=== PATIENT | female | born 1940 | race Caucasian/White ===

== ENCOUNTER 2017-05-03 12:44 | Emergency (ER) | payer MEDICARE, BC ==
--- NOTE | 2017-05-03 13:19 | Emergency Department Record ---
History of Present Illness - General Chief Complaint: Shortness of breath Stated Complaint: UPPER RESPITORY/KALYAN Time Seen by Provider: 05/03/17 13:07 Source: Patient Mode of Arrival: Ambulatory Limitations: No limitations - History of Present Illness Initial Comments: The patient is here with a 3 day hx of a cough with intermittent sputum production. She has had some chronic SOB but no different than normal. She denies any CP, fever, chills, or back pain. The patient believes she needs an Abx. MD Complaint: Cough Onset/Timin -: Days(s) Known History Of: COPD Treatments Prior to Arrival: Oxygen - Related Data Home Oxygen Therapy: Yes Home Oxygen Amount: 3 Liters Home Medications Medication Instructions Recorded Confirmed Last Taken Omeprazole [Prilosec] 20 mg PO DAILY 05/03/17 05/03/17 05/03/17 Previous Rx's Medication Instructions Recorded Doxycycline Monohydrate [Mondoxyne 100 mg PO BID #20 capsule 05/03/17 Nl] Allergies Allergy/AdvReac Type Severity Reaction Status Date / Time antibiotic Allergy VOMITING Uncoded 02/07/15 21:01 Travel Screening - Travel/Exposure Within Last 30 Days Have you traveled within the last 30 days?: No - Travel/Exposure Within Last Year Have you traveled outside the [place] in the last year?: No - Additonal Travel Details Have you been exposed to anyone with a communicable illness?: No Review of Systems Constitutional: Denies: Chills, Fever Eyes: Denies: Eye discharge ENT: Reports: Congestion Respiratory: Reports: Cough. Denies: Dyspnea Past Medical History - SOCIAL HISTORY Smoking Status: Former smoker Alcohol Use: None Drug Use: None - RESPIRATORY Hx Respiratory Disorders: Yes Hx COPD: Yes Comment:: HOme O2-3L - CARDIOVASCULAR Hx Cardio Disorders: Yes Hx Irregular Heartbeat: Yes - NEURO Hx Neuro Disorders: No - GI Hx GI Disorders: No - Hx Genitourinary Disorders: No - ENDOCRINE Hx Endocrine Disorders: No - MUSCULOSKELETAL Hx Musculoskeletal Disorders: Yes Hx Arthritis: Yes - PSYCH Hx Psych Problems: Yes Hx Anxiety: Yes Hx Depression: Yes - HEMATOLOGY/ONCOLOGY Hx Hematology/Oncology Disorders: Yes Hx Cancer: Yes (Breast rocio.) Hx Chemotherapy: Yes Hx Radiation Therapy: No Family Medical History Any Significant Family History?: No Family Hx Comment (NOT TO BE USED IN PLACE OF ITEMS BELOW): Mom w/ Aortic aneurysm Hx Cancer: Brother/Sister Hx Heart Disease: Mother Hx Resp Disorders: Father Hx Stroke: Mother Physical Exam - General General Appearance: Alert, Oriented x3, Cooperative, No acute distress - Head Head exam: Atraumatic, Normocephalic, Normal inspection - Eye Eye exam: Normal appearance, PERRL - ENT Throat exam: Normal inspection. negative: Tonsillar erythema, Tonsillar exudate - Neck Neck exam: Normal inspection, Full ROM. negative: Tenderness - Respiratory Respiratory exam: Decreased breath sounds, Rhonchi (mild in the bases.). negative: Normal lung sounds bilaterally, Stridor, Wheezes - Cardiovascular Cardiovascular Exam: Regular rate, Normal rhythm, Normal heart sounds - GI/Abdominal GI/Abdominal exam: Soft, Normal bowel sounds. negative: Tenderness - Extremities Extremities exam: Normal inspection, Full ROM, Normal capillary refill. negative: Tenderness Course Vital Signs 05/03/17 12:50 Temperature 97.9 F Pulse Rate 94 H Respiratory 24 Rate Blood Pressure 115/55 Pulse Ox 95 - Reevaluation(s) Reevaluation #1: The patient is doing very well at this time. She denies any SOB, KALYAN, or chest pain. Her coughing seems to be improved and she feels ready for home. 05/03/17 14:33 Medical Decision Making - Data Complexity MDM Data: X-Ray Ordered and/or Reviewed - Radiology Data Radiology results: Report reviewed (CXR: COPD, No acute changes compared to old per Rad.) Disposition Disposition: Discharge Clinical Impression: Bronchitis Disposition: Home, Self-Care Condition: (1) Good Instructions: Acute Bronchitis (ED) Additional Instructions: Please take the Doxycycline as directed and continue your regular medicines. Please see your PCP early next week if not better. Return to the ER for any trouble breathing, shortness of breath, increasing cough or fever. Prescriptions: Doxycycline Monohydrate [Mondoxyne Nl] 100 mg PO BID #20 capsule Forms: Patient Portal Access Time of Disposition: 14:36 Quality - Quality Measures Quality Measures: N/A - Blood Pressure Screening View Details: Yes Does Patient Have Any of the Following: No Blood Pressure Classification: Pre-Hypertensive BP Reading Systolic Measurement: 126 Diastolic Measurement: 75 Screening for High Blood Pressure: < Pre-Hypertensive BP, F/U Documented > [ G8950] Pre-Hypertensive Follow-up Interventions: Referral to alternative/primary care provider.
[2017-05-03] MEDS ORDERED: DOXYCYCLINE HYCLATE 100 MG CAPSULE PO ONE (14:09)
--- NOTE | 2017-05-04 13:22 | RADIOLOGY REPORT ---
EXAM: CHEST 2 VIEWS HISTORY: DIFFICULTY IN BREATHING. TECHNIQUE: Frontal and lateral views of the chest were performed. COMPARISON: 04/19/16. FINDINGS: The heart size is normal. There is severe emphysematous change. There is a large bulla in the left lung base. No acute-type infiltrate or pleural effusion. IMPRESSION: SEVERE UNDERLYING EMPHYSEMA. THERE IS A LARGE BULLA/BLEB IN THE LEFT LOWER LOBE. NO ACUTE PROCESS. JOB NUMBER: [id number] MTDD
== END 2017-05-03 14:50 | disposition home or self-care (01) ==
LOC: ER 12:44
DX: J20.9 Acute bronchitis, unspecified (principal); R06.02 Shortness of breath; J44.9 Chronic obstructive pulmonary disease, unspecified; Z99.81 Dependence on supplemental oxygen; Z87.891 Personal history of nicotine dependence
CPT/HCPCS: 71020; 99283

== ENCOUNTER 2019-05-27 08:17 | Emergency (ER) | payer MEDICARE, MEDICAID ==
--- NOTE | 2019-05-27 08:45 | Emergency Department Record ---
History of Present Illness - General Chief Complaint: Cough Stated Complaint: COUGH Time Seen by Provider: 05/27/19 08:36 Source: Patient, RN notes reviewed Mode of Arrival: Ambulatory - History of Present Illness Initial Comments: patient has a cough which started 6 days ago and seen by her palative care nurse and started on amoxil and prednisone and not getting better. Primary is shar Chambers and her cough is dry and using nebulizer every 8 hours and inhalers .Patient on home oxygen 3 liters per minute and her pallative nurse wants to talk to her primary about hospise care. MD Complaint: Cough Onset/Timin -: Week(s) - Related Data Home Medications Medication Instructions Recorded Confirmed Last Taken Amoxicillin/Potassium Clav 1 tab PO BID 05/27/19 05/27/19 Unknown [Augmentin 875-125 Tablet] Guaifenesin [Mucinex] 600 mg PO BID 05/27/19 05/27/19 Unknown Methylprednisolone [Medrol] 4 mg PO ASDIR 05/27/19 05/27/19 Unknown Roflumilast [Daliresp] 250 mcg PO DAILY 05/27/19 05/27/19 Unknown Previous Rx's Medication Instructions Recorded Levofloxacin [Levaquin] 500 mg PO DAILY #7 tablet 05/27/19 Allergies Allergy/AdvReac Type Severity Reaction Status Date / Time tetracycline AdvReac VOMITING Verified 05/27/19 08:32 Travel Screening - Travel/Exposure Within Last 30 Days Have you traveled within the last 30 days?: No Review of Systems Reviewed: No additional complaints except as noted below Constitutional: Reports: As per HPI. Denies: Chills, Fever, Malaise, Night sweats, Weakness, Weight change Eyes: Reports: As per HPI. Denies: Eye discharge, Eye pain, Photophobia, Vision change ENT: Reports: As per HPI. Denies: Congestion, Dental pain, Ear pain, Epistaxis, Hearing loss, Throat pain Respiratory: Reports: As per HPI. Denies: Cough, Dyspnea, Hemoptysis, Stridor, Wheezes Cardiovascular: Reports: As per HPI. Denies: Arrhythmia, Chest pain, Dyspnea on exertion, Edema, Murmurs, Orthopnea, Palpitations, Paroxysmal nocturnal dyspnea, Rheumatic Fever, Syncope Endocrine: Reports: As per HPI. Denies: Fatigue, Heat or cold intolerance, Polydipsia, Polyuria Gastrointestinal: Reports: As per HPI. Denies: Abdominal pain, Constipation, Diarrhea, Hematemesis, Hematochezia, Melena, Nausea, Vomiting Genitourinary: Reports: As per HPI. Denies: Abnormal menses, Discharge, Dyspareunia, Dysuria, Frequency, Hematuria, Incontinence, Retention, Urgency Musculoskeletal: Reports: As per HPI. Denies: Arthralgia, Back pain, Gout, Joint swelling, Myalgia, Neck pain Skin: Reports: As per HPI. Denies: Bruising, Change in color, Change in hair/nails, Lesions, Pruritus, Rash Neurological: Reports: As per HPI. Denies: Abnormal gait, Confusion, Headache, Numbness, Paresthesias, Seizure, Tingling, Tremors, Vertigo, Weakness Psychiatric: Reports: As per HPI. Denies: Anxiety, Auditory hallucinations, Depression, Homicidal thoughts, Suicidal thoughts, Visual hallucinations Hematological/Lymphatic: Reports: As per HPI. Denies: Anemia, Blood Clots, Easy bleeding, Easy bruising, Swollen glands Past Medical History - SOCIAL HISTORY Smoking Status: Former smoker Alcohol Use: None Drug Use: None - RESPIRATORY Hx Respiratory Disorders: Yes Hx COPD: Yes Comment:: HOme O2-3L - CARDIOVASCULAR Hx Cardio Disorders: Yes Hx Irregular Heartbeat: Yes - NEURO Hx Neuro Disorders: No - GI Hx GI Disorders: No - Hx Genitourinary Disorders: No - ENDOCRINE Hx Endocrine Disorders: No - MUSCULOSKELETAL Hx Musculoskeletal Disorders: Yes Hx Arthritis: Yes - PSYCH Hx Psych Problems: Yes Hx Anxiety: Yes Hx Depression: Yes - HEMATOLOGY/ONCOLOGY Hx Hematology/Oncology Disorders: Yes Hx Cancer: Yes (Breast rocio.) Hx Chemotherapy: Yes Hx Radiation Therapy: No Family Medical History Any Significant Family History?: Yes Family Hx Comment (NOT TO BE USED IN PLACE OF ITEMS BELOW): Mom w/ Aortic aneurysm Hx Cancer: Brother/Sister Hx Heart Disease: Mother Hx Resp Disorders: Father Hx Stroke: Mother Physical Exam - General General Appearance: Alert, Oriented x3, Cooperative, No acute distress - Head Head exam: Normal inspection - Eye Eye exam: Normal appearance, PERRL Pupils: Normal accommodation - ENT ENT exam: Normal exam, Mucous membranes moist, Normal external ear exam, Normal orophraynx, TM's normal bilaterally Ear exam: Normal external inspection. negative: External canal tenderness Nasal Exam: Normal inspection. negative: Discharge, Sinus tenderness Mouth exam: Normal external inspection, Tongue normal Teeth exam: Normal inspection. negative: Dental caries Throat exam: Normal inspection. negative: Tonsillar erythema, Tonsillar exudate - Neck Neck exam: Normal inspection, Full ROM. negative: Tenderness - Respiratory Respiratory exam: Normal lung sounds bilaterally. negative: Respiratory distress - Cardiovascular Cardiovascular Exam: Regular rate, Normal rhythm, Normal heart sounds - GI/Abdominal GI/Abdominal exam: Soft, Normal bowel sounds. negative: Tenderness - Rectal Rectal exam: Deferred - exam: Deferred - Extremities Extremities exam: Normal inspection, Full ROM, Normal capillary refill. negative: Tenderness - Back Back exam: Reports: Normal inspection, Full ROM. Denies: Muscle spasm, Rash noted, Tenderness - Neurological Neurological exam: Alert, Normal gait, Oriented X3, Reflexes normal - Psychiatric Psychiatric exam: Normal affect, Normal mood - Skin Skin exam: Dry, Intact, Normal color, Warm Course Vital Signs 05/27/19 08:24 Temperature 98.4 F Pulse Rate 68 Respiratory 24 Rate Blood Pressure 138/61 Pulse Ox 97 Medical Decision Making - Data Complexity MDM Data: Labs Ordered and/or Reviewed, X-Ray Ordered and/or Reviewed (copd, no infilotrates) - Lab Data Result diagrams: 05/27/19 08:55 05/27/19 08:55 Disposition Clinical Impression: Bronchitis COPD (chronic obstructive pulmonary disease) Qualifiers: COPD type: COPD with acute exacerbation Qualified Code(s): J44.1 - Chronic obstructive pulmonary disease with (acute) exacerbation Disposition: Home, Self-Care Condition: (1) Good Instructions: Acute Bronchitis (ED), COPD (Chronic Obstructive Pulmonary Disease) (ED) Additional Instructions: follow up with [facility] in 2 to 7 days stop augmentin continue medrol dose pack she is taking 4 pills today Prescriptions: Levofloxacin [Levaquin] 500 mg PO DAILY #7 tablet Forms: Patient Portal Access Time of Disposition: 11:41 Quality - Quality Measures Quality Measures: N/A - Blood Pressure Screening Does Patient Have Any of the Following: No Blood Pressure Classification: Pre-Hypertensive BP Reading Systolic Measurement: 138 Diastolic Measurement: 61 Screening for High Blood Pressure: < Pre-Hypertensive BP, F/U Documented > [G8950] Pre-Hypertensive Follow-up Interventions: Referral to alternative/primary care provider.
[2019-05-27 09:05] LABS: ABSOLUTE NEUTROPHIL COUNT 4.54; BASO % 0.2 % (0-6); GRAN % 78.2 % (47-80); HEMATOCRIT 41.5 % (35.0-47.0); HEMOGLOBIN 12.9 gm/dl (11.6-16.0); LYMPH % 12.8 % (16-45); MEAN CELL VOLUME 94.5 fl (81-97); MEAN CORPUSCULAR HEMOGLOBIN 29.4 pg (27-33); MEAN CORPUSCULAR HGB CONC 31.1 g/dl (32-36); MEAN PLATELET VOLUME 10.6 fl (7.4-10.4); MONO % 8.8 % (0-9); PLATELET COUNT 182 K/uL (130-400); RED BLOOD COUNT 4.39 M/uL (3.80-5.40); RED CELL DISTRIBUTION WIDTH 13.9 % (11.5-14.5); WHITE BLOOD COUNT W/O DIFF 5.8 K/uL (4.2-12.2)
[2019-05-27] MEDS: IPRATROPIUM/ALBUTEROL (0.5MG/3MG) NEB INH ONE (09:09)
[2019-05-27 09:14] LABS: BLOOD UREA NITROGEN 23 mg/dL (8-23); CREATININE 0.6 mg/dL (0.5-0.9); EST GLOMERULAR FILTRATION RATE > 60 mL/min
[2019-05-27 09:17] LABS: GLUCOSE,RANDOM 141 mg/dL (74-109)
--- NOTE | 2019-05-27 09:48 | RADIOLOGY REPORT ---
EXAMINATION: Two View Chest Radiographs EXAM DATE: 05/27/2019 9:45 AM TECHNIQUE: Frontal and lateral views INDICATION: cough,sob COMPARISON: 2017 chest x-ray ENCOUNTER: Not applicable FINDINGS: The heart, mediastinum, and pulmonary vasculature are normal. No lung consolidation or pleural effu sions are present. There is severe pulmonary emphysema with a large bulla within the left lower lobe. IMPRESSION: No acute cardiopulmonary abnormality. Dictated by: Jose Goel MD on 05/27/2019 9:46 AM. .
[2019-05-27] MEDS: METHYLPREDNISOLONE PF 125MG/VIAL IVP ONE (10:55)
== END 2019-05-27 11:59 | disposition home or self-care (01) ==
LOC: ER 08:17
DX: J44.1 Chronic obstructive pulmonary disease with (acute) exacerbation (principal); J20.9 Acute bronchitis, unspecified; J44.0 Chronic obstructive pulmonary disease with (acute) lower respiratory infection; Z99.81 Dependence on supplemental oxygen; Z87.891 Personal history of nicotine dependence
CPT/HCPCS: 71046; 80048; 85025; 94640; 96374; 99284; J2930